=== PATIENT | female | born 1965 | race Two or more races ===

== ENCOUNTER 2022-09-27 18:58 | Emergency (ER) | payer BC, OTHER ==
[~2022-09-27] VITALS: Ht 157.5 cm; Wt 82.0 kg
[~2022-09-27 18:58] MED LIST: UNKNOWN BP MED
[2022-09-27 21:44] VITALS: BP 155/96
[2022-09-27] MEDS ORDERED: PRED20TA2 PO (23:18)
[2022-09-27] MEDS ORDERED: AMOX-277 PO (23:18)
== END 2022-09-27 23:36 | disposition home or self-care (01) ==
LOC: ER 19:02
DX: J20.9 Acute bronchitis, unspecified (principal); I10 Essential (primary) hypertension; Z20.822 Contact with and (suspected) exposure to COVID-19
CPT/HCPCS: 36415; 71045; 87426; 87804